=== PATIENT | female | born 1950 | race Hispanic/Latino ===

== ENCOUNTER 2024-12-06 11:01 | Emergency (ER) | payer OTHER, MEDICAID ==
[~2024-12-06] VITALS: Ht 147.3 cm; Wt 65.8 kg
--- NOTE | 2024-12-06 11:19 | NUR ---
PER FLORENTIN HOWARDOUTSIDE FOOD SERVER, NO MOT WILL BE NEEDED SHOULD PT BE D/C'D BACK TO [facility]. PT IS ON A SECTOIN 26.
--- NOTE | 2024-12-06 11:40 | NUR ---
1:1 SITTER NOTE: PT HAS A 1:1 SITTER. REFER TO DOCUMENTATION
--- NOTE | 2024-12-06 11:42 | NUR ---
PT PLACED IN [place] [id number]
--- NOTE | 2024-12-06 12:20 | HMCIMG ---
EXAM: CR left Shoulder, 2 View. CLINICAL HISTORY: fall COMPARISON: None provided. FINDINGS: Cemented hardware within the proximal left humerus. Mild acromioclavicular joint osteoarthritis. Bones are osteopenic, limiting evaluation for nondisplaced fractures. There is no displaced fracture appreciated. There is no abnormality within the visualized chest. IMPRESSION: 1. No acute osseous injury. 2. Cemented hardware in proximal left humerus. /[place]
--- NOTE | 2024-12-06 12:22 | HMCIMG ---
EXAM: CR Cervical spine, 3 View. CLINICAL HISTORY: fall COMPARISON: None provided. FINDINGS: Mild cervical spondylosis evident by small anterior osteophytes at multiple levels. The cervical alignment is within normal limits. Straightening of the cervical spine that may reflect paraspinal muscle spasm. Vertebral body heights are maintained without a displaced fracture appreciated. There is no listhesis. Prominent prevertebral soft tissues at C5-C7 of uncertain etiology. Consider contrast-enhanced CT imaging of the cervical spine for further evaluation. IMPRESSION: 1. No acute cervical spine fracture or dislocation. 2. Prominent prevertebral soft tissues at C5-C7, etiology uncertain. Consider contrast-enhanced CT of the cervical spine for further evaluation. /[place]
--- NOTE | 2024-12-06 12:26 | NUR ---
PT HAS GONE TO AND RETURNED FROM RADIOLOGY DEPT.
--- NOTE | 2024-12-06 12:38 | HMCIMG ---
EXAM: CT Head Without IV contrast. CLINICAL HISTORY: fall TECHNIQUE: Axial computed tomography images of the head/brain without intravenous contrast. COMPARISON: None provided. FINDINGS: BRAIN: No evidence of acute hemorrhage. No mass lesion. No CT evidence for acute territorial infarct. No midline shift or extra-axial collections. VENTRICLES: No hydrocephalus. ORBITS: The orbits are unremarkable. SINUSES AND MASTOIDS: The paranasal sinuses and mastoid air cells are clear. BONES: No fracture. SOFT TISSUES: Unremarkable. IMPRESSION: No acute intracranial abnormality. /[place]
--- NOTE | 2024-12-06 12:47 | ERN ---
General Chief Complaint: Mechanical Fall Stated Complaint: FALL WITH SHOULDER PAIN (L) Time Seen by MD: 11:06 Source: patient History of Present Illness Initial Comments Patient is a 74-year-old female with a psychiatric history coming in to be evaluated for left shoulder pain. Per patient she was evaluated at another ER but while being cleared at the psychiatric facility concerns arose due to patient still having left shoulder pain. Patient is here for further evaluation of left shoulder pain. Allergies: Coded Allergies: No Known Drug Allergies (Unverified Allergy, Unknown, 12/06/24) Past Medical History Past Medical History: Arthritis, Hypertension, Seizure Medical History Other: THYROID ISSUES Past Surgical History: Hysterectomy, Other Surgical History Other: BILATERAL L/R SHOULDER SURGERY ROS Dictation CONSTITUTIONAL: No chills, no fever, no weakness, no diaphoresis, no malaise. HEAD/FACE: No signs of trauma. EENT: No eye pain, no blurred vision, no tearing, no double vision, no ear pain, no ear discharge, no nose pain, no nasal congestion, no throat pain, no throat swelling, no mouth pain. RESPIRATORY: No cough, no orthopnea, no SOB, no stridor, no wheezing. CARDIOVASCULAR: No chest pain, no edema, no palpitations, no syncope. GASTROINTESTINAL/ABDOMINAL: No abdominal pain, no constipation, no diarrhea, no nausea, no vomiting. GENITOURINARY: No abnormal discharge, no dysuria, no frequent urination, no hematuria. No complaints of pain in the genitals. MUSCULOSKELETAL: No back pain, no gout, no joint pain, joint swelling, muscle pain, no muscle stiffness, no neck pain. INTEGUMENTARY: No change in color, no change in hair/nails, no dryness, no lesion, no lumps, no rash. NEUROLOGICAL/PSYCH: No anxiety, not depressed, no emotional problem, no headache, no numbness, no pre-existing deficit, no history of seizures, no tremors, no weakness. HEMATOLOGIC/LYMPHATIC: Not anemic, no history of blood clots, no apparent bleeding, no bruising, glands not swollen. All Systems Negative, Except as Noted. Physical Exam Physical Exam Dictation VITAL SIGNS: Reviewed. GENERAL APPEARANCE: Alert, oriented x3, no acute distress, obese. HEAD AND FACE: Non-traumatic. On palpation of the occipital region EYES: PERRL, pink conjunctivas, eyelid no trauma, anterior chamber clear. EARS: Pinnas intact and no signs of trauma or erythema. Ear canals clear and no discharge. TMs no erythema. NOSE: No discharge, no bleeding. OROPHARYNX: Mouth normal, teeth no caries, tongue pink. Pharynx clear, no erythema. Tonsils no exudates, no abscesses noted. Mucous membrane moist. NECK: Supple, non-tender, no thyromegaly, no masses, no JVD, no bruits. BREAST: Deferred. CHEST: No tenderness, no crepitus, no paradoxical movement, no retractions. LUNGS: Clear, well-ventilated, symmetric, no rales, no wheezing, no rhonchi, no stridor, good breath sounds bilaterally. HEART: Regular rate, regular rhythm, no murmur, no gallops. VASCULAR: No peripheral edema. ABDOMEN: Soft, positive bowel sounds, nondistended, no guarding, nontender, no rebound, no masses no hepatomegaly, no splenomegaly, no Aragon's sign, no hernias. RECTAL: Deferred. GENITAL: Deferred. NEUROLOGICAL: Normal speech, gross motor function intact, gross sensory function intact. MUSCULOSKELETAL: Neck nontender, full range of motion, cervical spine tendern ess on palpation, full range of motion. EXTREMITIES: Nontender, full range of motion. The shoulder tenderness on palpation SKIN: Color pink, dry, no turgor, no rash, no lacerations, no abrasions, no contusions. LYMPHATICS: Deferred. Results Laboratory and Microbiology Lab and Micro Result Laboratory Tests Test 12/06/24 13:01 White Blood Count 5.2 K/uL (4.8-10.8) Red Blood Count 4.20 MIL/uL (4.00-5.50) Hemoglobin 13.3 g/dL (12.0-16.0) Hematocrit 39.3 % (36-48) Mean Corpuscular Volume 93.6 fL (79-99) Mean Corpuscular Hemoglobin 31.7 pg (27.0-33.0) Mean Corpuscular Hemoglobin Concent 33.8 g/dL (32.0-36.0) Red Cell Distribution Width 12.7 % (11.0-15.5) Platelet Count 180 K/uL (130-400) Mean Platelet Volume 11.1 fL (7.5-10.5) H Immature Granulocyte % (Auto) 0.2 % (0-1) Neutrophils (%) (Auto) 58.7 % (40.0-77.0) Lymphocytes (%) (Auto) 30.6 % (21.0-51.0) Monocytes (%) (Auto) 6.0 % (3.0-13.0) Eosinophils (%) (Auto) 3.7 % (0.0-8.0) Basophils (%) (Auto) 0.8 % (0.0-5.0) Neutrophils # (Auto) 3.1 K/uL (1.8-7.7) Lymphocytes # (Auto) 1.6 K/uL (1.0-4.8) Monocytes # (Auto) 0.3 K/uL (0.1-1.0) Eosinophils # (Auto) 0.19 K/uL (0.00-0.70) Basophils # (Auto) 0.04 K/uL (0.00-0.20) Absolute Immature Granulocyte (auto 0.01 K/uL (0-1) Nucleated Red Blood Cells 0.0 % (0.0-0.19) Sodium Level 145 mmol/L (136-145) Potassium Level 4.5 mmol/L (3.5-5.1) Chloride Level 109 mmol/L (101-111) Carbon Dioxide Level 28 mmol/L (21-32) Blood Urea Nitrogen 9 mg/dL (7-18) Creatinine 0.6 mg/dL (0.5-1.0) Glomerular Filtration Rate Calc 94 mL/min (>90) Random Glucose 116 mg/dL (70-105) H Total Calcium 8.4 mg/dL (8.5-10.1) L Labs Reviewed?: Yes EKG/XRAY/US/CT/MRI X-RAY Comment [id number] [address] IMAGING REPORT Signed PATIENT: LON BERMAN MR#: [id number] : 1950 SEX: F AGE: 74 LOCATION: [facility] ORDER 14 STATUS: [facility] REPORT#: [id number] SERVICE 1113 REASON: fall ORDERING PHYSICIAN: RANI MONTERO MD PROCEDURE: SHOL 2V LT - SHOULDER COMP 2+VWS LT EXAM: CR left Shoulder, 2 View. CLINICAL HISTORY: fall COMPARISON: None provided. FINDINGS: Cemented hardware within the proximal left humerus. Mild acromioclavicular joint osteoarthritis. Bones are osteopenic, limiting evaluation for nondisplaced fractures. There is no displaced fracture appreciated. There is no abnormality within the visualized chest. IMPRESSION: 1. No acute osseous injury. 2. Cemented hardware in proximal left humerus. /[place] DICTATED BY: AUSTYN REES Jr., MD DATE: 12/06/241319 ELECTRONICALLY SIGNED BY: AUSTYN REES Jr., MD DATE: 12/06/241319 CT Scan Comment IMAGING REPORT Signed PATIENT: LON BERMAN MR#: [id number] : 1950 SEX: F AGE: 74 LOCATION: [facility] ORDER 14 STATUS: [facility] REPORT#: [id number] SERVICE 111 REASON: fall ORDERING PHYSICIAN: RANI MONTERO MD PROCEDURE: HEAD WO - CT HEAD/BRAIN W/O CONTRAST EXAM: CT Head Without IV contrast. CLINICAL HISTORY: fall TECHNIQUE: Axial computed tomography images of the head/brain without intravenous contrast. COMPARISON: None provided. FINDINGS: BRAIN: No evidence of acute hemorrhage. No mass lesion. No CT evidence for acute territorial infarct. No midline shift or extra-axial collections. VENTRICLES: No hydrocephalus. ORBITS: The orbits are unremarkable. SINUSES AND MASTOIDS: The paranasal sinuses and mastoid air cells are clear. BONES: No fracture. SOFT TISSUES: Unremarkable. IMPRESSION: No acute intracranial abnormality. /[place] DICTATED BY: AUSTYN REES Jr., MD DATE: 12/06/241336 ELECTRONICALLY SIGNED BY: AUSTYN REES Jr., MD DATE: 10/14/25 1337 IMAGING REPORT Signed PATIENT: LON BERMAN MR#: [id number] : 1950 SEX: F AGE: 74 LOCATION: ED ORDER 14 STATUS: [facility] REPORT#: [id number] SERVICE 111 REASON: fall ORDERING PHYSICIAN: RANI MONTERO MD PROCEDURE: CERV 2 3VW - CERV SPINE 2-3VWS EXAM: CR Cervical spine, 3 View. CLINICAL HISTORY: fall COMPARISON: None provided. FINDINGS: Mild cervical spondylosis evident by small anterior osteophytes at multiple levels. The cervical alignment is within normal limits. Straightening of the cervical spine that may reflect paraspinal muscle spasm. Vertebral body heights are maintained without a displaced fracture appreciated. There is no listhesis. Prominent prevertebral soft tissues at C5-C7 of uncertain etiology. Consider contrast-enhanced CT imaging of the cervical spine for further evaluation. IMPRESSION: 1. No acute cervical spine fracture or dislocation. 2. Prominent prevertebral soft tissues at C5-C7, etiology uncertain. Consider contrast-enhanced CT of the cervical spine for further evaluation. /[place] DICTATED BY: AUSTYN REES Jr., MD DATE: 12/06/241320 ELECTRONICALLY SIGNED BY: AUSTYN REES Jr., MD DATE: 12/06/241320 [place] [id number] IMAGING REPORT Signed PATIENT: LON BERMAN MR#: [id number] : 1950 SEX: F AGE: 74 LOCATION: ED ORDER 24 STATUS: REG ER REPORT#: [id number] SERVICE 23 REASON: abnormal xray ORDERING PHYSICIAN: RANI MONTERO MD PROCEDURE: C SPIN W - CT CERVICAL SPINE W/CONTRAST EXAM: CT Cervical Spine Without IV contrast. CLINICAL HISTORY: abnormal xray TECHNIQUE: Axial computed tomography images of the cervical spine without intravenous contrast. Sagittal and coronal reformatted images were generated. COMPARISON: X-ray of the cervical spine from same day FINDINGS: ALIGNMENT: Bony alignment is anatomic. DEGENERATIVE CHANGES: Cervical spondylosis is evident by anterior osteophytes and mild uncovertebral joint hypertrophy. There is mild multilevel degenerative disc disease. Ligamentum flavum calcification at the C4 level, causing mild spinal canal compromise. SOFT TISSUES: The prevertebral soft tissues are within normal limits. There is a area of calcification adjacent to the right lamina at the level of C4. BONES: No acute fracture or aggressively appearing osseous lesion. IMPRESSION: 1. No acute osseous injury. 2. Cervical spondylosis with mild multilevel degenerative changes, including ligamentum flavum calcification at C4 causing mild spinal canal compromise. /[place] DICTATED BY: EVELINE KOTHARI MD DATE: 12/06/241648 ELECTRONICALLY SIGNED BY: EVELINE KOTHARI MD DATE: 12/06/241648 [facility] MDM: Differential diagnosis: Medical clearance, fall, Rationale: Tests considered and ordered secondary to shared decision making include: Previous outside records reviewed: Old ER visits. Risk of complication and/or morbidity or mortality of patient management: None Medications-Per medication reconciliation Need for hospitalization: Patient does not meet criteria for hospitalization. Need for emergency major/minor surgery: No Patient is a 74-year-old female sent over for medical clearance from psychiatric facility. Patient has been complaining of left shoulder pain imaging studies negative for acute findings. Patient will be sent back to the psychiatric facility for further evaluation. Patient will be discharged in stable condition no neuropathy or other neurological deficits present. Did advised her appropriate follow up with the PCP for long-term management ED Course Orders Procedure Category Date Status Time Ct Head/Brain W/O CT 12/06/24 Resulted Contrast 11:13 Shoulder Comp 2+Vws Lt RAD 12/06/24 Resulted 11:13 Cerv Spine 2-3vws RAD 12/06/24 Resulted 11:13 Cbc With Differential LAB 12/06/24 Complete 12:47 Basic Metabolic Panel LAB 12/06/24 Complete 12:[address] 12/06/24 Resulted W/Contrast 13:24 Tramadol PHA 12/06/24 Complete Hcl/Acetaminophen 14:00 Iohexol (Omnipaque) PHA 12/06/24 Complete 14:43 Current Medications Medications (Trade) Dose Ordered Sig/Jason Route PRN Reason Start Time Stop Time Status Last Admin Dose Admin Iohexol (Omnipaque) 50 ml STK-MED ONCE IV 12/06/24 14:43 12/06/24 14:43 DC Tramadol/ Acetaminophen (UltraCET) 1 tab ONCE ONCE PO 12/06/24 14:00 12/06/24 14:17 DC 12/06/24 14:34 Vital Signs Date Time Temp Pulse Resp B/P (MAP) Pulse Ox O2 Delivery O2 Flow Rate FiO2 12/06/24 15:30 98.8 76 16 160/78 98 Room Air* 0 21 12/06/24 11:05 72 16 151/77 97 Room Air 0 DX & DISP Disposition: Discharge Departure Impression: Primary Impression: Medical clearance for psychiatric admission Additional Impression: Fall Condition: Stable Additional Instructions: FOLLOW-UP WITH PRIMARY CARE PROVIDER IN 1 TO 2 DAYS. TAKE MEDICATIONS DIRECTED HERE IN THE EMERGENCY ROOM. OKAY TO CONTINUE HOME MEDICATIONS UNLESS OTHERWISE DISCUSSED DURING YOUR VISIT IN THE EMERGENCY ROOM TODAY. RETURN TO YOUR NEAREST EMERGENCY ROOM IF SYMPTOMS WORSEN OR IF THERE IS NO IMPROVEMENT. CALL 911 IF YOU NEED IMMEDIATE ASSISTANCE. TAKE TYLENOL [id number] NEEDED AND IF NO CONTRAINDICATIONS ARE PRESENT. INCREASE ORAL HYDRATION. A WOUND CULTURE OR URINE CULTURE WAS ORDERED HERE IN THE EMERGENCY ROOM DEPARTMENT PLEASE FOLLOW-UP WITH PRIMARY CARE PROVIDER AND ADVISE THEM TO GET REPORTS FROM OUR FACILITY. IF YOU HAD ANY HILDA WRAP/SPLINTS THAT WERE APPLIED HERE, PLEASE DO NOT REMOVE THEM UNTIL YOU SEE YOUR PRIMARY CARE OR SPECIALTY. Referrals: Referrals: MALIKA WOODY MD, LUIS A MD Time of Disposition: 16:19 RANI MONTERO MD Dec 06, 2024 12:47
[2024-12-06 13:06] LABS: IMMATURE GRANULOCYTE ABSOLUTE 0.01 K/uL (0-1); NUCLEATED RED BLOOD CELLS 0.0 % (0.0-0.19); PLATELET COUNT (AUTO) 180 K/uL (130-400); RED BLOOD CELL COUNT(AUTO) 4.20 MIL/uL (4.00-5.50); RED CELL DISTRIBUTION WIDTH 12.7 % (11.0-15.5); WHITE BLOOD COUNT (AUTO) 5.2 K/uL (4.8-10.8)
[2024-12-06 13:13] LABS: CREATININE 0.6 mg/dL (0.5-1.0); GLOMERULAR FILTR. RATE CALC 94.0 mL/min (>90); GLUCOSE,RANDOM 116.0 mg/dL (70-105); SODIUM SERUM 145.0 mmol/L (136-145); UREA NITROGEN, BLOOD 9.0 mg/dL (7-18)
--- NOTE | 2024-12-06 14:39 | NUR ---
CONSENT OBTAINED FOR IV CT CONTRAST
[2024-12-06] MEDS ORDERED: IOHEXOL-350 50ML VIAL IV ONE (14:43)
--- NOTE | 2024-12-06 14:49 | NUR ---
PT JUST NOW LEFT TO CT SCAN VIA STRETCHER. ROSI THE T WENT WITH HER. PT CALM AND COOPERATIVE AT THIS TIME.
--- NOTE | 2024-12-06 15:49 | HMCIMG ---
EXAM: CT Cervical Spine Without IV contrast. CLINICAL HISTORY: abnormal xray TECHNIQUE: Axial computed tomography images of the cervical spine without intravenous contrast. Sagittal and coronal reformatted images were generated. COMPARISON: X-ray of the cervical spine from same day FINDINGS: ALIGNMENT: Bony alignment is anatomic. DEGENERATIVE CHANGES: Cervical spondylosis is evident by anterior osteophytes and mild uncovertebral joint hypertrophy. There is mild multilevel degenerative disc disease. Ligamentum flavum calcification at the C4 level, causing mild spinal canal compromise. SOFT TISSUES: The prevertebral soft tissues are within normal limits. There is a area of calcification adjacent to the right lamina at the level of C4. BONES: No acute fracture or aggressively appearing osseous lesion. IMPRESSION: 1. No acute osseous injury. 2. Cervical spondylosis with mild multilevel degenerative changes, including ligamentum flavum calcification at C4 causing mild spinal canal compromise. /[place]
--- NOTE | 2024-12-06 15:50 | NUR ---
PT IS BREATHING EASY AND REGULAR. NO ACUTE DISTRESS NOTED AT THIS TIME.
--- NOTE | 2024-12-06 16:25 | NUR ---
REPORT: REPORT WAS CALLED TO MAYELA HOWARDPRODUCTION CLERKS SUPERVISOR AT [facility]. NO MOT IS REQUIRED PER HEAD SCORER MAYELA
[2024-12-06] MEDS ORDERED: TRAM-543 PO (16:32)
--- NOTE | 2024-12-06 17:10 | NUR ---
STILL JUST PENDING RIDE FROM [facility]. ROSI CALLED 40MINS AGO.
--- NOTE | 2024-12-06 17:47 | NUR ---
PT ROSI'S RESIDENT CARE SUPERVISOR, WE ARE AWAITING FOR VEHICLES TO SWITCH OUT IN ORDER FOR THEM TO COME AND TUBE CARRIER HER AND THE PT. PT IS CALMLY EATING. SHE CURRENTLY DENIES ANY SI. SHE IS SITTING UP AND STATES HER PAIN IS MUCH BETTER
[2024-12-06 18:33] VITALS: BP 141/76; PULSE 66; RESP 16; TEMP 97.6; O2SAT 96
== END 2024-12-06 18:39 | disposition home or self-care (01) ==
LOC: EDH 11:01
DX: M25.512 Pain in left shoulder (principal); M47.812 Spondylosis without myelopathy or radiculopathy, cervical region; I10 Essential (primary) hypertension; Z90.710 Acquired absence of both cervix and uterus; W18.39XA Other fall on same level, initial encounter; Y93.89 Activity, other specified; Y92.89 Other specified places as the place of occurrence of the external cause; Y99.8 Other external cause status
CPT/HCPCS: 99285; 70450; 80048; 85025; 36415; 72040; 73030; 72126; Q9967